=== PATIENT | female | born 2000 | race Caucasian/White ===

== ENCOUNTER 2021-07-25 08:24 | Emergency (ER) | payer BC ==
[~2021-07-25] VITALS: Ht 170 cm; Wt 86.0 kg
--- OUTSIDE RECORDS SUMMARY | 2021-07-25 08:31 | XMS REPORT | Clinical Summary ---
Demographics Preferred Language Unknown Marital Status Single Pentecostalism Affiliation Unknown Race Unknown Ethnic Group Unknown Author Author [facility] Organization [facility] Address Unknown Phone Unavailable Care Team Providers [facility] Advisor Name Role Phone PCP Unavailable Allergies Not on File Medications Not on file Active Problems Not on file Social History Date Tobacco Use Types Packs/Day Years Used Never Assessed Sex Assigned at Date Recorded Not on file Last Filed Vital Signs Not on file Plan of Treatment Not on file Results Not on filefrom Last 3 Months
[2021-07-25] MEDS ORDERED: AMOX-358 PO (08:55)
[2021-07-25] MEDS ORDERED: LIDO20SO23 MM (08:55)
[2021-07-25] MEDS ORDERED: NAPR500T8 PO (08:55)
--- NOTE | 2021-07-25 08:55 | ED EENT ---
History of Present Illness General Chief Complaint: Dental Problems/Pain Stated Complaint: R SIDED MOUTH SWELLING Nursing Triage Note: PT AMB TO ROOM 6 PT STATES HAS SWOLLEN GUMS AND PAIN ON TOP R GUMS Source: patient History of Present Illness Date Seen by Provider: Jul 25, 2021 Time Seen by Provider: 08:39 Initial Comments PT ARRIVES VIA POV C/O DENTAL PAIN AND GUM SWELLING TO RIGHT UPPER FIRST MOLAR X 3 DAYS NO FEVER NO FACIAL SWELLING TOOK IBUPROFEN 800 MG AT 0200 WITHOUT RELIEF. HAS HAD A CROWN ON THIS TOOTH SINCE AGE 5, AND SINCE THE AGE OF 11, SHE HAS HAD THIS PROBLEM ABOUT TWICE A YEAR EVERY YEAR HAS SEEN A DENTIST IN THE LAST YEAR FOR ROUTINE DENTAL CARE, BUT NOT SPECIFICALLY FOR THIS PROBLEM PT IS A STUDENT FROM [place], CURRENTLY LIVES HERE IN [place] WITH HER BOYFRIEND, AND GOES TO [place] AT [facility]. Allergies and Home Medications Patient Home Medication List Home Medication List Reviewed: Yes Amoxicillin/Potassium Clav (Augmentin 875-125 Tablet) 1 Each Tablet, 1 EACH PO BID Prescribed by: JENNIFER FERRARI on 07/25/21 0855 Lidocaine HCl (Lidocaine HCl Viscous) 15 Ml Solution, 1-2 ML MM [id number] Prescribed by: JENNIFER FERRARI on 07/25/21 0855 Naproxen (Naproxen) 500 Mg Tablet.dr, 500 MG PO BID Prescribed by: JENNIFER FERRARI on 07/25/21 0855 Review of Systems Review of Systems Constitutional: no symptoms reported Mouth: see HPI : No LMP: Jul 25, 2021 Skin: no symptoms reported Neurological: No Symptoms Reported Past Pfkvivi-Cudvud-Ujmpup Hx Patient Social History Tobacco Use?: No Use of E-Cig and/or Vaping dev: Yes E-Cig or Vaping type used: Nicotine Use of E-Cig and/or Vaping [place]: Former User Substance use?: No Alcohol Use?: No Past Medical History Surgeries: No Respiratory: No Cardiac: No Neurological: No Reproductive Disorders: No 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 oz. kg; 29.00 BMI Method: General Appearance: WD/WN, no apparent distress, other (DOES NOT APPEAR TO BE IN ANY DISCOMFORT OR DISTRESS. ) Mouth/Throat: No trismus, No voice changes; other (RIGHT UPPER FIRST MOLAR WITH CROWN IN PLACE, TENDER TO PERCUSSION, MILD SURROUNDING GUM SWELLING AND REDNESS. NO FLUCTUANCE, NO DRAINAGE. NO FACIAL SWELLING. 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 Decision time for Depature: 08:50 Referrals: NO,LOCAL PHYSICIAN (PCP) Primary Care Physician Patient Instructions: Tooth Abscess (DC) Add. Discharge Instructions: FREQUENT SALT WATER SWISHES TO AREA TYLENOL NEEDED FOR PAIN FOLLOW UP WITH DENTIST OF CHOICE THIS WEEK FOR FURTHER CARE All discharge instructions reviewed with patient and/or family. Voiced understanding. Scripts Naproxen (Naproxen) 500 Mg Tablet.dr 500 MG PO BID, #20 TAB Prov: JENNIFER FERRARI DO 07/25/21 Lidocaine HCl (Lidocaine HCl Viscous) 15 Ml Solution 1-2 ML MM [id number], #120 ML Prov: JENNIFER FERRARI DO 07/25/21 Amoxicillin/Potassium Clav (Augmentin 875-125 Tablet) 1 Each Tablet 1 EACH PO BID for 10 Days, #20 TAB Prov: JENNIFER FERRARI DO 07/25/21 JENNIFER FERRARI DO Jul 25, 2021 08:55
[2021-07-25 09:04] VITALS: BP 125/85
== END 2021-07-25 09:04 | disposition home or self-care (01) ==
LOC: ER 08:28
DX: K04.7 Periapical abscess without sinus (principal); Z87.891 Personal history of nicotine dependence
CPT/HCPCS: 99282